=== PATIENT | male | born 1970 | race Caucasian/White ===

== ENCOUNTER → 2021-05-10 | Day surgery (SDC) | payer BC ==
[~2021-05-10] VITALS: Ht 185.4 cm; Wt 84.4 kg
[~2021-05-10] MED LIST: BACTRIM DS TAB1 EACH PO; HYDROCODON-ACE1 EAC2 PO; ZYRTEC10 MG PO
[2021-05-10 06:49] LABS: HEMOGLOBIN 14.6 gm/dl (14.0-17.5); RED BLOOD COUNT 4.43 M/UL (4.20-5.50); WHITE BLOOD COUNT 9.2 K/UL (4.5-11.0)
[2021-05-10 07:38] LABS: BUN/CREATININE RATIO 17 (0-10)
== END | disposition home or self-care (01) ==
LOC: OR 05:43
PROVIDERS: Orthopaedic Surgery
DX: M71.522 Other bursitis, not elsewhere classified, left elbow (principal); M00.9 Pyogenic arthritis, unspecified; F17.210 Nicotine dependence, cigarettes, uncomplicated; Z20.822 Contact with and (suspected) exposure to COVID-19; Z88.1 Allergy status to other antibiotic agents
CPT/HCPCS: 80048; 85025; J0690; J1885; J2250; J2405; J2704; J3010; J7120; U0002

== ENCOUNTER 2021-07-31 21:28 | Inpatient (IN) | payer BC ==
[~2021-07-31] VITALS: Ht 185.4 cm; Wt 74.8 kg
[2021-07-31 22:08] LABS: HEMOGLOBIN 14.1 gm/dl (14.0-17.5); RED BLOOD COUNT 4.36 M/UL (4.20-5.50); WHITE BLOOD COUNT 17.3 K/UL (4.5-11.0)
[2021-07-31 22:30] LABS: BUN/CREATININE RATIO 13 (0-10)
--- NOTE | 2021-08-01 02:33 | NUR ---
PROVIDER NOTIFIED OF PATIENTS TEMP, ORDERS PLACED.
[2021-08-01 03:21] LABS: HEMOGLOBIN 12.4 gm/dl (14.0-17.5); RED BLOOD COUNT 3.97 M/UL (4.20-5.50); WHITE BLOOD COUNT 16.1 K/UL (4.5-11.0)
[2021-08-02 02:40] LABS: HEMOGLOBIN 11.6 gm/dl (14.0-17.5); RED BLOOD COUNT 3.73 M/UL (4.20-5.50); WHITE BLOOD COUNT 17.5 K/UL (4.5-11.0)
[2021-08-03 07:17] LABS: HEMOGLOBIN 11.3 gm/dl (14.0-17.5); RED BLOOD COUNT 3.67 M/UL (4.20-5.50); WHITE BLOOD COUNT 14.5 K/UL (4.5-11.0)
[2021-08-04 09:17] LABS: HEMOGLOBIN 12.4 gm/dl (14.0-17.5); RED BLOOD COUNT 3.92 M/UL (4.20-5.50)
[2021-08-04 09:33] LABS: BUN/CREATININE RATIO 15 (0-10)
--- NOTE | 2021-08-05 16:30 | NUR ---
1630- PT ON ROOM AIR, O2 SATURATION DROPPED TO 88%
== END 2021-08-07 11:10 | disposition home or self-care (01) | DRG 853 ==
LOC: ER1 21:28 → M/S 23:04 → CDU 23:04 → M/S 08-01 01:03
PROVIDERS: Family Medicine; Physician Assistant; ADMIT Surgery
PROC: 0D1N0Z4 Bypass Sigmoid Colon to Cutaneous, Open Approach (ICD-10-PCS; 2021-08-02)
PROC: 0DBN0ZZ Excision of Sigmoid Colon, Open Approach (ICD-10-PCS; principal; 2021-08-02 13:00)
DX: A41.9 Sepsis, unspecified organism (principal); K65.0 Generalized (acute) peritonitis; K57.20 Diverticulitis of large intestine with perforation and abscess without bleeding; K56.7 Ileus, unspecified; F17.210 Nicotine dependence, cigarettes, uncomplicated; Z20.822 Contact with and (suspected) exposure to COVID-19
CPT/HCPCS: 36415; 71045; 80048; 80053; 81001; 83605; 83690; 85025; 85027; 87086; 96374; 96375; 99285; J1100; J1170; J1885; J2001; J2250; J2270; J2405; J2543; J2704; J2710; J3010; J7030; J7120; Q9967; U0002

== ENCOUNTER 2021-09-20 09:15 | Inpatient (IN) | payer BC ==
[~2021-09-20] VITALS: Ht 175.3 cm; Wt 81.2 kg
[2021-09-20 11:54] LABS: HEMOGLOBIN 14.4 gm/dl (14.0-17.5); RED BLOOD COUNT 4.5 M/UL (4.20-5.50); WHITE BLOOD COUNT 5.9 K/UL (4.5-11.0)
[2021-09-20 12:12] LABS: BUN/CREATININE RATIO 10 (0-10)
[2021-09-21 03:17] LABS: HEMOGLOBIN 12.9 gm/dl (14.0-17.5); RED BLOOD COUNT 4.08 M/UL (4.20-5.50)
[2021-09-21 03:20] LABS: WHITE BLOOD COUNT 10.4 K/UL (4.5-11.0)
[2021-09-21 03:47] LABS: BUN/CREATININE RATIO 10 (0-10)
== END 2021-09-22 12:24 | disposition home or self-care (01) | DRG 331 ==
LOC: OR 09:15 → M/S 17:04 → OR 17:05 → M/S 17:06
PROVIDERS: Anesthesiology; ADMIT Surgery
PROC: 0YU50JZ Supplement Right Inguinal Region with Synthetic Substitute, Open Approach (ICD-10-PCS; 2021-09-20)
PROC: 0DBM4ZZ Excision of Descending Colon, Percutaneous Endoscopic Approach (ICD-10-PCS; principal; 2021-09-20 10:30)
DX: Z43.3 Encounter for attention to colostomy (principal); M70.20 Olecranon bursitis, unspecified elbow; Z20.822 Contact with and (suspected) exposure to COVID-19; K40.90 Unilateral inguinal hernia, without obstruction or gangrene, not specified as recurrent; M19.90 Unspecified osteoarthritis, unspecified site; F17.210 Nicotine dependence, cigarettes, uncomplicated; K66.0 Peritoneal adhesions (postprocedural) (postinfection); Z98.890 Other specified postprocedural states; Z88.2 Allergy status to sulfonamides; Z88.1 Allergy status to other antibiotic agents; Z88.6 Allergy status to analgesic agent
CPT/HCPCS: 36415; 80048; 85025; C1781; J0690; J1100; J1170; J1885; J2001; J2250; J2270; J2405; J2704; J3010; J7030; J7040; J7120